=== PATIENT | male | born 1955 | race African-American/Black ===

== ENCOUNTER 2017-03-12 09:37 | Inpatient (IN) | payer OTHER ==
[~2017-03-12] VITALS: Ht 190.5 cm; Wt 116.3 kg
--- NOTE | 2017-03-12 09:37 | NUR ---
PT BIBA C/O CHEST PAIN ON AND OFF SINCE THIS AM. [facility] HOLD PT WAS GIVEN ASA 324 MG PO AND NITRO 0.4 MG SPRAY, C/P WENT DOWN TO 0/10. PLACED PT ON CM VSS. PT CAME FROM [facility]. AWAITING DR HAMEED.
[2017-03-12 10:27] LABS: BILIRUBIN TOTAL 0.7 mg/dL (0.20-1.00); CALCIUM 8.7 mg/dL (8.5-10.1); CARBON DIOXIDE 24.2 mmol/L (21-32); CREATININE SERUM 1.3 mg/dL (0.7-1.3); POTASSIUM SERUM 5.2 mmol/L (3.5-5.1); TOTAL PROTEIN, SERUM 6.5 g/dL (6.4-8.2)
--- NOTE | 2017-03-12 10:44 | NUR ---
BLOOD CULTURES DRAWN
--- NOTE | 2017-03-12 10:56 | NUR ---
MEDICATED ORDERED, SEE MAR. WILL MONITOR FOR ADVERSE REACTIONS
[2017-03-12] MEDS ORDERED: SUNMARK ENTERI325 MG PO (11:31)
[2017-03-12] MEDS ORDERED: LISINOPRIL10 MG PO (11:31)
[2017-03-12] MEDS ORDERED: METOPROLOL SUCC50 M2 PO (11:31)
[2017-03-12] MEDS ORDERED: LIPI20 PO (11:31)
[2017-03-12 11:33] LABS: MAGNESIUM 1.7 mg/dL (1.8-2.4)
[2017-03-12 11:36] LABS: CHOLESTEROL/HDL RATIO 3.5
[2017-03-12 11:39] LABS: BASOPHIL % 0.4 % (0-2); PLATELET COUNT 190 x10^3mcL (130-400); RED CELL DISTRIBUTION WIDTH 13.3 % (11.5-14.5)
--- NOTE | 2017-03-12 12:00 | NUR ---
MRSA SPECIMEN TAKEN AND SENT TO LAB
--- NOTE | 2017-03-12 12:27 | NUR ---
REPORT GIVEN TO VENKAT
--- NOTE | 2017-03-12 13:05 | NUR ---
WESLEY FRYE RN AT BEDSIDE PERFORMING ADMISSION ASSESSMENT AT THIS TIME.
--- NOTE | 2017-03-12 13:06 | NUR ---
PT TAKEN UPSTAIRS A/AX 4
--- NOTE | 2017-03-12 13:06 | NUR ---
PT. IS PLACED ON [employer]. MONITOR #35, WHICH IS SHOWING A. FIB. WITH H.R. RANGING BETWEEN 85 TO 115 BPM.
[2017-03-12 13:33] VITALS: BP 140/97
--- NOTE | 2017-03-12 13:42 | NUR ---
RECEIVED PATIENT FROM ED CIM PATIENT 2 GUARDS AT BEDSIDE, C/O SLIGHT DISCOMFORT TO CHEST, WILL MEDICATE ORDERED, ALERT AND ORIENTED, ORIENTED PATIENT TO ROOM AND SURROUNDINGS, BED IN LOW POSITION, BED RAILS UP X 2, CALL LIGHT WITHIN REACH, WILL ENDORSE CARE TO VENKAT DUBOSE
--- NOTE | 2017-03-12 14:25 | NUR ---
echocardiogram completed
--- NOTE | 2017-03-12 16:30 | NUR ---
URINE COLLECTED AND SENT TO LAB FOR UA, UDS, AND URINE C/S.
[2017-03-12 16:54] LABS: microscopic required? NO
[2017-03-12 17:09] VITALS: BP 121/79
--- NOTE | 2017-03-12 17:20 | NUR ---
REMAINS IN STABLE CONDITION AT THIS TIME. NO ACUTE DISTRESS NOTED. SCD TO BLE MAINTAINED.
[2017-03-12 17:47] LABS: AMPHETAMINE QUAL UR NONE DETECTED (NEG <=1000); urine erythrocyte NEGATIVE (NEGATIVE)
--- NOTE | 2017-03-12 19:50 | NUR ---
RECEIVED Pt AAOX4 CALM AND COOPERATIVE WITH CARE. DENIES ANY CHEST PAIN. LUNG SOUNDS ARE CTA BILATERALLY. Pt IS ON ROOM AIR TOLERATING WELL. ACTIVE BOWEL SOUNDS X4 QUADS. DENIES ANY PAIN, N/V/D. VOIDS FREELY. IV SITE TO LEFT HAND IS PATENT AND HEPLOCKED. DISCOLORATION NOTED. MOVES ALL EXTREMITIES, NO EDEMA NOTED. SCD'S IN PLACE. RE-ORIENTED TO ROOM AND CALL LIGHT SYSTEM WITHIN EASY REACH. WILL CONTINUE TO MONITOR.
[2017-03-12 20:44] VITALS: BP 117/68
--- NOTE | 2017-03-13 00:59 | NUR ---
Pt RESTING COMFORTABLY. CALL LIGHT WITHIN REACH. WILL CONTINUE TO MONITOR.
--- NOTE | 2017-03-13 05:13 | NUR ---
NO SIGNIFICANT CHANGES NOTED OVERNIGHT. NO FURTHER C/O CHEST PAIN. REMAINS A-FIB. CONSULTED Pt. VOIDS FREELY. CONTINUES TO REST QUIETLY. SAFETY AND COMFORT MEASURES REMAIN IN PLACE. WILL CONTINUE TO MONITOR.
[2017-03-13 05:39] VITALS: BP 98/74
[2017-03-13 06:26] LABS: CARBON DIOXIDE 29.3 mmol/L (21-32); CHLORIDE SERUM 107 mmol/L (98-107); CREATININE SERUM 1.2 mg/dL (0.7-1.3); GFR1 > 60 mL/min; GLUCOSE SERUM 116 mg/dL (74-106); POTASSIUM SERUM 4.2 mmol/L (3.5-5.1); SODIUM SERUM 142 mmol/L (136-145)
[2017-03-13 07:00] LABS: BASOPHIL % 0.4 % (0-2); PLATELET COUNT 228 x10^3mcL (130-400)
--- NOTE | 2017-03-13 08:00 | NUR ---
AWAKE AND ALERT. TEMP 97.8. TELE #35 ATRIAL FIB RATE 147 AT THIS TIME. DENIES SOB. RESP 18 EVEN. BREATH SOUNDS DIMINISHED. DX PNA. PULSE OX 99% ON RA. ABD ROUNDED BUT SOFT, BOWEL TONES PRESENT. LBM THIS AMB. VOIDING QS. NO EDEMA. PULSES PRESENT. SCD IN PLACE. IV SALINE LOCK TO LEFT HAND #24 ANGIO PATENT. SCHEDULED FOR [facility]ISC[facility] TODAY AT 1500. INFORMED THAT MAY EAT BREAKFAST, THEN NPO AFTER 1100. PT VERBALIZED UNDERSTANDING.
[2017-03-13 09:22] VITALS: BP 95/71
--- NOTE | 2017-03-13 09:40 | NUR ---
DR HEARN HERE. UPDATED WITH PT STATUS AND HEARTRATE. ON ASA FOR HX OF ATRIAL FIB. PT ON ASA DAILY. ORDERED FOR HEPARIN SQ BID. PHARMACY CALLED TO ADD MORNING DOSE. LOPRESSOR AND ZESTRIL GIVEN ORDERED. RATE 129 AT THIS TIME.
--- NOTE | 2017-03-13 11:45 | NUR ---
HR NOW 105. DENIES CHEST DISCOMFORT. CALL LIGHT IN REACH.
[2017-03-13 13:56] VITALS: BP 100/57
--- NOTE | 2017-03-13 14:10 | NUR ---
MAXINE FROM [employer] HERE TO DISCUSS TEST WITH PT. PT REFUSES LEXISCAN. STATES "HAD ONE THREE YEARS AGO AND WHEN THEY GAVE ME THE MEDICINE I GOT REAL HOT AND FELT TERRIBLE. I DONT WANT TO GO THROUGH THAT AGAIN." CALL TO DR HEARN. UPDATED WITH PT REQUEST. PER DR HEARN TO LET DR ELDER KNOW WHEN HE ARRIVES TO EVAL PT AND IF MEDICALLY STABLE MAY RETURN TO [facility]. OK TO GIVE LUNCH AT THIS TIME. CALL TO MAXINE TO LET DR ELDER KNOW WHEN HE ARRIVES.
[2017-03-13 15:01] VITALS: BP 100/57
--- NOTE | 2017-03-13 16:38 | NUR ---
DR ELDER HERE. UPDATED WITH PT STATUS. IN TO SPEAK WITH PT. MEDS REVIEWED. TO CONTINUE METOPROLOL 25MG BID AND ZESTRIL 5MG DAILY. PER DR ELDER PT IS MEDICALLY CLEARED TO RETURN TO [facility] TODAY. CALL TO DR HEARN. UPDATED WITH DR CHU FINDINGS.
--- NOTE | 2017-03-13 17:00 | NUR ---
TRANSFER PACKET COMPLETED. PT UPDATED WITH PLAN OF CARE. GUARDS TO CALL FOR TRANSPORT [facility].
[2017-03-13 17:09] VITALS: BP 124/67
--- NOTE | 2017-03-13 18:30 | NUR ---
TRANSPORTATION HERE. TELE REMOVED AND RETURNED TO TELE UNIT. IV REMOVED CATH TIP INTACT. DC VIA WHEELCHAIR TO TRANSPORTATION [facility] WITH TWO GUARDS.
== END 2017-03-13 18:29 | disposition other institution (70) | DRG 195 ==
LOC: ED 09:37 → DU 10:48
PROVIDERS: ADMIT Internal Medicine
DX: J18.9 Pneumonia, unspecified organism (principal); I48.2 Chronic atrial fibrillation; E87.5 Hyperkalemia; R73.9 Hyperglycemia, unspecified; I10 Essential (primary) hypertension; E78.5 Hyperlipidemia, unspecified; I25.119 Atherosclerotic heart disease of native coronary artery with unspecified angina pectoris
CPT/HCPCS: 80307; 82962; 83880; J1644; J1956; J2785; J7030; J7050; Q0092

== ENCOUNTER 2017-12-09 13:19 | Inpatient (IN) | payer OTHER ==
[~2017-12-09] VITALS: Ht 188 cm; Wt 118.6 kg
[~2017-12-09 13:19] MED LIST: LIPI20 PO; LISINOPRIL10 MG PO; METOPROLOL SUCC50 M2 PO; SUNMARK ENTERI325 MG PO
[2017-12-09 14:46] LABS: CALCIUM 8.9 mg/dL (8.5-10.1); CARBON DIOXIDE 23.1 mmol/L (21-32); CREATININE SERUM 1.3 mg/dL (0.7-1.3); POTASSIUM SERUM 4.8 mmol/L (3.5-5.1)
[2017-12-09 14:51] LABS: BASOPHIL % 0.3 % (0-2); PLATELET COUNT 221 x10^3mcL (130-400); RED CELL DISTRIBUTION WIDTH 13.3 % (11.5-14.5)
[2017-12-09 14:58] LABS: ALBUMIN 3.8 g/dL (3.4-5.0); BILIRUBIN TOTAL 0.9 mg/dL (0.20-1.00); MAGNESIUM 1.9 mg/dL (1.8-2.4); T4(THYROXINE) 7.4 ug/dL (4.7-13.3); TOTAL PROTEIN, SERUM 7.6 g/dL (6.4-8.2)
[2017-12-09 16:58] LABS: CHOLESTEROL/HDL RATIO 4.2
[2017-12-09 17:05] VITALS: BP 132/83
[2017-12-09 22:26] VITALS: BP 112/62
[2017-12-09 23:39] LABS: microscopic required? NO
[2017-12-10 00:27] LABS: urine erythrocyte NEGATIVE (NEGATIVE)
[2017-12-10 00:28] LABS: AMPHETAMINE QUAL UR NONE DETECTED (NEG <=1000)
[2017-12-10 06:40] VITALS: BP 123/85
[2017-12-10 10:49] LABS: BASOPHIL % 0.5 % (0-2); PLATELET COUNT 210 x10^3mcL (130-400); RED CELL DISTRIBUTION WIDTH 13.2 % (11.5-14.5)
[2017-12-10 10:50] LABS: CALCIUM 8.8 mg/dL (8.5-10.1); CARBON DIOXIDE 22.4 mmol/L (21-32); CHLORIDE SERUM 106 mmol/L (98-107); CREATININE SERUM 1.2 mg/dL (0.7-1.3); GFR1 > 60 mL/min; GLUCOSE SERUM 128 mg/dL (74-106); POTASSIUM SERUM 4.1 mmol/L (3.5-5.1); SODIUM SERUM 139 mmol/L (136-145)
[2017-12-10 10:57] VITALS: BP 106/78
[2017-12-10 12:47] VITALS: BP 106/65
[2017-12-10 18:01] VITALS: BP 88/59
[2017-12-10 20:59] VITALS: BP 116/64
[2017-12-11 05:31] VITALS: BP 103/70
[2017-12-11 14:03] VITALS: BP 132/69
[2017-12-11 15:52] VITALS: BP 132/69
[2017-12-11 18:18] VITALS: BP 112/66
== END 2017-12-11 21:30 | disposition other institution (70) | DRG 309 ==
LOC: ED 13:19 → DU 16:06
PROVIDERS: Emergency Medicine; Internal Medicine
DX: I48.91 Unspecified atrial fibrillation (principal); I24.9 Acute ischemic heart disease, unspecified; E78.00 Pure hypercholesterolemia, unspecified; E66.9 Obesity, unspecified; K42.9 Umbilical hernia without obstruction or gangrene; I25.10 Atherosclerotic heart disease of native coronary artery without angina pectoris; Z68.30 Body mass index [BMI] 30.0-30.9, adult; Z98.42 Cataract extraction status, left eye; Z98.41 Cataract extraction status, right eye; I11.0 Hypertensive heart disease with heart failure; I50.9 Heart failure, unspecified
CPT/HCPCS: 83880; A9500; J1160; J2785; J3490; Q0092

== ENCOUNTER 2019-04-22 11:57 | Inpatient (IN) | payer OTHER ==
[~2019-04-22] VITALS: Ht 190.5 cm; Wt 117.9 kg
--- NOTE | 2019-04-22 12:09 | NUR ---
PT BROUGHT IN BY [facility]IR FROM [facility] WITH C/O DIZZINESS, CP AND TACHYCARDIA SINCE 514. EKG IN PROGRESS. AT BEDSIDE PT IS AAOX4. RESPS E/U. SKIN IS PINK, WARM AND DRY. PERRLA. PT PLACED ON MONITOR. BED RAILS UP X1 FOR SAFETY. PT ORIENTED TO ROOM, USE OF CALL AQUINO AND BED IN LOWEST POSITION. PT IS CALM AND COOPERATIVE. PT AWAITING MSE. GERARDO SAMANIEGOON GUARDS AT BEDSIDE.
[2019-04-22 12:23] LABS: BASOPHIL % 0.3 % (0-2); PLATELET COUNT 214 x10^3mcL (130-400); RED CELL DISTRIBUTION WIDTH 13.8 % (11.5-14.5)
[2019-04-22 12:32] LABS: CALCIUM 9.9 mg/dL (8.5-10.1); CARBON DIOXIDE 26.8 mmol/L (21-32); CREATININE SERUM 1.3 mg/dL (0.7-1.3); POTASSIUM SERUM 4.5 mmol/L (3.5-5.1)
[2019-04-22 12:37] LABS: ALBUMIN 3.4 g/dL (3.4-5.0); BILIRUBIN TOTAL 0.44 mg/dL (0.20-1.00); TOTAL PROTEIN, SERUM 7.1 g/dL (6.4-8.2)
--- NOTE | 2019-04-22 12:57 | NUR ---
PER DR. CHAND ADMINISTER BP MED AFTER BOLUS.
[2019-04-22] MEDS ORDERED: DIGOXIN0.125 M1 (13:27)
[2019-04-22] MEDS ORDERED: METFORMIN HYDR500 M1 (13:27)
[2019-04-22] MEDS ORDERED: DILTIAZEM HCL120 M2 (13:28)
[2019-04-22] MEDS ORDERED: XARELTO10 M1 (13:28)
--- NOTE | 2019-04-22 13:34 | NUR ---
HAND-OFF REPORT TO SEDRICK GONZALEZ FROM TELE UNIT TO ASSUME CARE.
--- NOTE | 2019-04-22 13:48 | NUR ---
PER DR.WINN JHONATAN SWEET AT THIS TIME
--- NOTE | 2019-04-22 14:25 | NUR ---
RECEIVED PT FROM ED VIA JC, CAME IN DUE TO CHEST PAIN. AAOX4, C/O 3/10 HEADACHE. ABLE TO FOLLOW COMMANDS. NO SOB NOTED, LUNG SOUNDS CTA. DENIES CHEST PAIN/PRESSURE, AFIB ON THE MONITOR. DENIES ABDOMINAL DISCOMFORT. BOWEL SOUNDS ACTIVE. IV SITE ON THE RAC IS PATENT AND INTACT. SIDE RAILS UPX2. CALL LIGHT ON REACH. WILL ENDORSE TO PRIMARY NURSE CARLOS FOR CONTINUITY OF CARE
[2019-04-22 14:28] VITALS: BP 129/60
[2019-04-22 14:34] VITALS: Ht 190.5 cm; Wt 117.9 kg
[2019-04-22] MEDS ORDERED: APAP500 MG PO (14:39)
[2019-04-22] MEDS ORDERED: DIGOXIN0.125 M1 PO (14:39)
[2019-04-22] MEDS ORDERED: ASPIR 8181 MG PO (14:39)
[2019-04-22] MEDS ORDERED: ATORVASTATIN CA40 M1 PO (14:39)
[2019-04-22] MEDS ORDERED: METFORMIN500 M1 PO (14:40)
[2019-04-22] MEDS ORDERED: DILTIAZEM HCL120 M2 PO (14:40)
[2019-04-22] MEDS ORDERED: XARELTO10 M1 PO (14:40)
[2019-04-22] MEDS ORDERED: LISINOPRIL10 MG PO (14:40)
--- NOTE | 2019-04-22 14:48 | NUR ---
ENDORSED TO PRIMARY NURSE CARLOS FOR CONTINUITY OF CARE
[2019-04-22 14:57] LABS: CHOLESTEROL/HDL RATIO 3.4
--- NOTE | 2019-04-22 17:55 | NUR ---
PT RESTING IN BED, AOX4, RESP E/U ON RA. NO ACUTE DISTRESS NOTED. DENIES HEADACHE OR CHEST PAIN AT THIS TIME. IV TO RAC W/ NO ERYHTEMA OR EDEMA. BED IN LOWEST POSITION AND CALL LIGHT WITHIN REACH. SECURITY GUARDS AT BEDSIDE. WILL ENDORSE TO ONCOMING NURSE.
[2019-04-22 19:19] VITALS: BP 101/42
--- NOTE | 2019-04-22 20:15 | NUR ---
RECEIVED PT IN BED AAOX4 NO ACUTE DISTRESS NOTED , PT DENY CHEST PAIN AT THE MOMENT , TELE NUMBER 8 SHOWS AFIB HR 88, LUNG SOUNDS CTA , ABD SOFT BS ACTIVE X4, 2 CIW GUARDS AT THE BEDSIDE AT THE MOMENT. WILL CON'T TO MONITOR PT .
--- NOTE | 2019-04-22 23:33 | NUR ---
PT HAS 2 PAUSES 1.5 SEC EACH , PT'S ASYMPTOMATIC V/D BP 114/[address] HEARN AWARE , CHARGE NURSE AWARE WELL , WILL CON'T TO MONITOR PT CLOSELY , TELE AFIB/A-FLUTTER AT THE MOMENT .
--- NOTE | 2019-04-23 01:32 | NUR ---
PT'S IN BED WITH EYES CLOSED , TELE AFIB/A-FLUTTER . SNF GUARDS AT THE BEDSIDE AT ALL THE TIME .
--- NOTE | 2019-04-23 03:29 | NUR ---
I HAVE REVIEWED THE DATA COLLECTION BY FLOWER (NAME):HATTIE CANTU ENTERED ON (DATE/TIME):04/22/19 I CONCUR WITH THE DATA AND ANY EXCEPTIONS OR COMMENTS ARE LISTED BELOW:
[2019-04-23 03:56] VITALS: BP 113/64
--- NOTE | 2019-04-23 06:13 | NUR ---
ALL DUE MEDS GIVEN NO REACTION NOTED , HL INTACT ,TELE AFIB.
[2019-04-23 08:57] LABS: CALCIUM 9.3 mg/dL (8.5-10.1); CARBON DIOXIDE 26.8 mmol/L (21-32); CHLORIDE SERUM 107 mmol/L (98-107); CREATININE SERUM 1.2 mg/dL (0.7-1.3); GFR1 > 60 mL/min; GLUCOSE SERUM 126 mg/dL (74-106); POTASSIUM SERUM 4.3 mmol/L (3.5-5.1); SODIUM SERUM 143 mmol/L (136-145)
[2019-04-23 09:12] LABS: BASOPHIL % 0.5 % (0-2); PLATELET COUNT 230 x10^3mcL (130-400); RED CELL DISTRIBUTION WIDTH 14.1 % (11.5-14.5)
[2019-04-23 09:51] VITALS: BP 102/55
[2019-04-23 12:38] VITALS: BP 107/63
[2019-04-23 17:25] VITALS: BP 139/90
--- NOTE | 2019-04-23 19:18 | NUR ---
REPORT GIVEN TO CREATIVE ARTS THERAPIST NURSE AT THE BEDSIDE, PT RESTING AT THIS TIME BUT WOKE FOR REPORT, IN NAD, CARE ENDORSED
[2019-04-23 19:41] VITALS: BP 129/48
--- NOTE | 2019-04-23 19:49 | NUR ---
PT'S IN BED AAOX4 , DENY CHEST PAIN AT THE MOMENT ,TELE NUMBER 8 SHOWS NSR WITH PAC'S HR 118. LUNG SOUNDS CTA , ABD SOFT BS ACTIVE X4, HL INTACT FLUSHING WELL , 2 RESIDENTIAL GUARDS AT THE BEDSIDE AT THE MOMENT .
--- NOTE | 2019-04-24 03:46 | NUR ---
PT'S IN BED WITH EYES CLOSED , TELE AFIB . GUARDS AT THE BEDSIDE .
[2019-04-24 04:46] LABS: UA SPECIFIC GRAVITY 1.015 (1.005-1.035); microscopic required? YES
[2019-04-24 04:47] LABS: urine erythrocyte NEGATIVE (NEGATIVE)
[2019-04-24 05:00] LABS: AMPHETAMINE QUAL UR NONE DETECTED (See below)
[2019-04-24 05:35] VITALS: BP 106/76
--- NOTE | 2019-04-24 06:17 | NUR ---
NO CHANGES OF CONDITION NOTED, ALL DUE MEDS GIVEN NO REACTION NOTED, TELE AFIB HR 88. HL INTACT FLUSHING WELL.
--- NOTE | 2019-04-24 07:05 | NUR ---
RECIEVED PT RESTING IN BED WITH NO C/O PAIN, DISTRESS, OR SOB. GUARD AT BEDSIDE. A/O X4 WITH NO MCCLENDON OR DIZZINESS. PT CONNECTED TO TELE #8 NO C/O CP OR PRESSURE AT THIS TIME. IV INTACT AND PATENT TO RAC WITH NO REDNESS OR INFLAMMATION. SAFETY PRECAUTIONS IN PLACE, CALL LIGHT WITHIN REACH, WILL MONITOR.
[2019-04-24 09:03] VITALS: BP 106/66
--- NOTE | 2019-04-24 10:00 | NUR ---
PT STABLE AT THIS TIME WITH NO C/O PAIN, DISTRESS, OR SOB. SAFETY PRECAUTIONS IN PLACE, CALL LIGHT WITHIN READCH, GUARD AT BEDSIDE, WILL MONITOR.
--- NOTE | 2019-04-24 13:00 | NUR ---
PT RESTING COMFORTABLY IN BED WITH GUARDS AT BEDSIDE. NO C/O PAIN, DISTRESS, OR SOB. SAFETY PRECAUTIONS IN PLACE, CALL LIGHT WITHIN REACH, WILL MONITOR.
[2019-04-24 13:26] VITALS: BP 103/72
[2019-04-24 13:47] VITALS: BP 103/72
--- NOTE | 2019-04-24 16:00 | NUR ---
PT STABLE AT THIS TIME WATCHING TV WITH GUARD AT BEDSIDE. NO C/O PAIN, DISTRESS, OR SOB. SAFETY PRECA IN PLACE, CALL LIGHT WITHIN REACH, WILL MONITOR.
[2019-04-24 17:07] VITALS: BP 96/67
--- NOTE | 2019-04-24 19:30 | NUR ---
PT IS A/O x4. ON TELE #8, AFIB. DENIES ANY CHEST PAIN OR PRESSURE. PULSES ARE PRESENT. NO EDEMA NOTED LUNGS CLEAR IN ALL FEILDS. ON RA, DENIES ANY SOB. EQUAL CHEST RISE AND FALL. NO SIGN OF RESP DISTRESS. BOWEL SOUNDS PRESENT. DENIES ANY ABD DISTRESS. SKIN WARM AND INTACT. DENIES ANY PAIN AT THIS TIME. NO IV ACCESS. PT IS PENDING JEWELRY BENCH MOLDER, NO ESTIMATED ETA YET. PT IS CIM, GREEN PIPEFITTER AT BEDSIDE. CUFF ON LEFT ANKLE. NO SIGN OF SKIN BREAKDOWN OR BLOCKED CIRCULATION. BED IS AT LOWEST SETTING. CALL LIGHT WITHIN REACH. WILL CONTINUE TO MONITOR.
--- NOTE | 2019-04-24 19:34 | NUR ---
PT STABLE AT THIS TIME. OK TO DISCHARGE PER DR ORDER. ALL CARES TOLERATED WELL. NO PAIN, DISTRESS, OR SOB NOTED AT THIS TIME. ALL DISCHARGE INTRUCTIONS AND EDUCATION GIVEN TO PATIENT AND PT VERBALIZES UNDERSTANDING. IV REMOVED WITH CATHETER INTACT AND NO REDNESS OR INFLAMMATION NOTED. NO CP OR PRESSURE NOTED. ID BANDS REMOVED FROM PT. GUARDS AT BEDSIDE. CURRENTLY AWAITING PICKUP. SAFETY PRECAUTIONS IN PLACE, CALL LIGHT WITHIN REACH, ENDORSED CARE TO INSURANCE AGENTS SUPERVISOR.
[2019-04-24 20:13] VITALS: BP 103/67
--- NOTE | 2019-04-24 20:33 | NUR ---
NEW ID BAND PLACED AT THIS TIME, UNTIL TRANSFER.
--- NOTE | 2019-04-24 21:20 | NUR ---
PT LEFT WITH 3 GUARDS ESCORTING PT THROUGH THE BACK ELEVATOR. TELE 8 WAS REMOVED AND RETURNED TO THE TELE ROOM. ID BAND WAS REMOVED. PT IN NO DESTRESS WHEN LEAVING.
== END 2019-04-24 21:20 | disposition other institution (70) | DRG 310 ==
LOC: ED 11:57 → DU 13:24
PROVIDERS: ADMIT Internal Medicine
DX: I48.91 Unspecified atrial fibrillation (principal); I25.10 Atherosclerotic heart disease of native coronary artery without angina pectoris; E11.9 Type 2 diabetes mellitus without complications; I10 Essential (primary) hypertension; E78.5 Hyperlipidemia, unspecified; Z68.32 Body mass index [BMI] 32.0-32.9, adult; Z79.01 Long term (current) use of anticoagulants; Z79.84 Long term (current) use of oral hypoglycemic drugs; Z79.82 Long term (current) use of aspirin; Z79.899 Other long term (current) drug therapy
CPT/HCPCS: 82962; 83880; G0378; J3490; Q0092

== ENCOUNTER 2020-11-18 09:51 | Day surgery (SDC) | payer OTHER ==
[~2020-11-18] VITALS: Ht 188 cm; Wt 115.2 kg
[~2020-11-18 09:51] MED LIST changes: +APAP500 MG PO; +ASPIR 8181 MG PO; +ATORVASTATIN CA40 M1 PO; +DIGOXIN0.125 M1; +DIGOXIN0.125 M1 PO; +DILTIAZEM HCL120 M2; +DILTIAZEM HCL120 M2 PO; +METFORMIN HYDR500 M1; +METFORMIN500 M1 PO; +XARELTO10 M1; +XARELTO10 M1 PO
[2020-11-18 10:14] VITALS: BP 98/64
[2020-11-18 18:56] VITALS: BP 130/62
== END 2020-11-18 15:10 ==
LOC: GI 09:51 → OR 10:00 → GI 10:00
PROVIDERS: ATTEND Internal Medicine Gastroenterology
DX: R19.5 Other fecal abnormalities (principal); D12.4 Benign neoplasm of descending colon; D12.8 Benign neoplasm of rectum; K57.30 Diverticulosis of large intestine without perforation or abscess without bleeding; K64.8 Other hemorrhoids; I10 Essential (primary) hypertension; E11.9 Type 2 diabetes mellitus without complications; Z83.3 Family history of diabetes mellitus; Z82.49 Family history of ischemic heart disease and other diseases of the circulatory system; Z79.899 Other long term (current) drug therapy
CPT/HCPCS: 45378; J1200; J1610; J2250; J2310; J3010; J3490